=== PATIENT | male | born 1990 | race Caucasian/White ===

== ENCOUNTER 2018-08-03 19:56 | Emergency (ER) | payer MEDICAID ==
[~2018-08-03] VITALS: Ht 162.6 cm; Wt 52.6 kg
[2018-08-03 21:38] VITALS: Ht 162.6 cm; Wt 52.6 kg
[2018-08-03 23:05] VITALS: BP 124/86
== END 2018-08-03 23:05 | disposition home or self-care (01) ==
LOC: ED 19:56
DX: L02.512 Cutaneous abscess of left hand (principal)
CPT/HCPCS: J2001

== ENCOUNTER 2019-06-30 11:06 | Emergency (ER) | payer MEDICAID ==
[~2019-06-30] VITALS: Ht 170.2 cm; Wt 56.2 kg
[2019-06-30 11:10] VITALS: Ht 170.2 cm; Wt 56.2 kg
[2019-06-30 13:57] VITALS: BP 112/69
== END 2019-06-30 13:57 | disposition home or self-care (01) ==
LOC: ED 11:06
DX: J11.1 Influenza due to unidentified influenza virus with other respiratory manifestations (principal)
CPT/HCPCS: 87804